=== PATIENT | male | born 1990 | race Caucasian/White ===

== ENCOUNTER 2016-10-25 21:41 | Emergency (ER) | payer OTHER | END 2016-10-26 00:23 | disposition left against medical advice (07) | LOC: ER1 21:41 | DX: Z53.21 Procedure and treatment not carried out due to patient leaving prior to being seen by health care provider (principal) | CPT/HCPCS: 93005 ==

== ENCOUNTER 2021-06-01 20:35 | Emergency (ER) | payer OTHER ==
[~2021-06-01 20:35] MED LIST: IBUPROFEN600 MG PO; NORFLEX 100 MG100 MG PO; PREDNISONE 50 M50 MG PO
[2021-06-01] MEDS ORDERED: CLEOCIN HCL300 MG PO (21:17)
[2021-06-01] MEDS ORDERED: NAPROXEN500 MG PO (21:17)
== END 2021-06-01 21:50 | disposition home or self-care (01) ==
LOC: ER1 20:35
DX: K02.9 Dental caries, unspecified (principal); K08.89 Other specified disorders of teeth and supporting structures; E11.9 Type 2 diabetes mellitus without complications
CPT/HCPCS: 96372; 96374; 99283; J1885